=== PATIENT | male | born 1960 | race Two or more races ===

== ENCOUNTER 2023-12-04 23:07 | Inpatient (IN) | payer OTHER ==
[~2023-12-04] VITALS: Ht 170.2 cm; Wt 68.9 kg
[2023-12-04] MEDS ORDERED: CEFTRIAXONE /D5W 50ML IVPB **ER PYXIS IV ONE (23:56)
[2023-12-04] MEDS ORDERED: HYDROMORPHONE 1 MG/1 ML DISP.SYRIN ONE (23:56)
[2023-12-04] MEDS ORDERED: ONDANSETRON 4 MG/2 ML VIAL ONE (23:56)
[2023-12-05] MEDS: HYDROMORPHONE 1 MG/1 ML DISP.SYRIN IV ONE
[2023-12-05] MEDS: ONDANSETRON 4 MG/2 ML VIAL IV ONE (00:01)
[2023-12-05] MEDS: CEFTRIAXONE 1 G in IV DEXTROSE 5% 50 ML IV ONE (00:11)
[2023-12-05 00:12] LABS: BASOPHILS # (AUTO) 0.2 K/UL (0.0-0.2); BASOPHILS % (AUTO) 2.5 % (0.0-2.0); EOSINOPHILS # (AUTO) 0.2 K/uL (0.0-0.7); EOSINOPHILS % (AUTO) 2.6 % (0.0-7.0); HEMATOCRIT 32.8 % (36.7-47.1); HEMOGLOBIN 11.5 g/dL (12.5-16.3); LYMPHOCYTES # (AUTO) 0.9 K/uL (0.8-4.8); MEAN CORPUSCULAR HEMOGLOBIN 35.4 uug (23.8-33.4); MEAN CORPUSCULAR HGB CONC 35 g/dL (32.5-36.3); MEAN CORPUSCULAR VOLUME 100.5 fL (73.0-96.2); MONOCYTES # (AUTO) 0.4 K/uL (0.1-1.30); NEUTROPHILS % (AUTO) 75.9 % (38.5-71.5); PLATELET COUNT (AUTO) 133 K/uL (152-348); RED BLOOD CELL COUNT(AUTO) 3.26 MIL/uL (4.06-5.63); RED CELL DISTRIBUTION WIDTH 13.7 % (12.1-16.2); WHITE BLOOD COUNT (AUTO) 6.6 K/uL (3.6-10.2)
[2023-12-05 00:22] LABS: CALCIUM 7.9 mg/dL (8.5-10.1); CREATININE 0.9 mg/dL (0.6-1.3); POTASSIUM 3.9 mmol/L (3.5-5.1)
[2023-12-05 00:24] LABS: DIFFERENTIAL COMMENT 1
[2023-12-05 00:28] LABS: ALBUMIN 2.5 g/dL (3.4-5.0); BILIRUBIN,DIRECT 0.8 mg/dL (0.0-0.2); TOTAL PROTEIN, SERUM 6.2 g/dL (6.4-8.2)
[2023-12-05] MEDS ORDERED: CALC-494 PO (00:30)
[2023-12-05] MEDS ORDERED: FOLI1TAB94 PO (00:30)
[2023-12-05] MEDS ORDERED: RIFA500P3 PO (00:30)
[2023-12-05] MEDS ORDERED: FAMO-132 PO (00:30)
[2023-12-05] MEDS ORDERED: CYAN-51 PO (00:30)
[2023-12-05] MEDS ORDERED: PROP20SO PO (00:30)
[2023-12-05] MEDS ORDERED: SODI100010 PO (00:30)
[2023-12-05] MEDS ORDERED: SPIR100T5 PO (00:30)
[2023-12-05] MEDS ORDERED: HYDR2TAB4 PO (00:30)
[2023-12-05] MEDS ORDERED: LACT10SO58 PO (00:30)
[2023-12-05] MEDS ORDERED: ACET325T53 PO (00:30)
[2023-12-05] MEDS ORDERED: DOCU-141 PO (00:30)
[2023-12-05] MEDS ORDERED: CYAN100020 SL (00:30)
[2023-12-05] MEDS ORDERED: THIA100T88 PO (00:30)
[2023-12-05] MEDS ORDERED: MORPHINE SULFATE 2 MG/1 ML DISP.SYRIN IV PRN (03:30)
[2023-12-05] MEDS ORDERED: ONDANSETRON 4 MG/2 ML VIAL IV PRN (03:30)
[2023-12-05] MEDS ORDERED: REMEDY ESSENTIAL ZINC PASTE 113 GM TP PRN (03:30)
[2023-12-05 04:10] VITALS: BP 94/59; TEMP 97.9; O2SAT 99
[2023-12-05 06:53] LABS: *BILIRUBIN,URIN NEGATIVE (NEGATIVE); *BLOOD, URINE NEGATIVE (NEGATIVE); *CLARITY,URINE CLEAR (CLEAR); *COLOR,URINE YELLOW (YELLOW); *KETONES,URINE NEGATIVE (NEGATIVE); *PROTEIN,URINE NEGATIVE (NEGATIVE); *UROBILINOGEN,URINE 0.2 E.U./dl (NORMAL); LEUKOCYTE ESTERASE ,URINE NEGATIVE (NEGATIVE); NITRITE, URINE NEGATIVE (NEGATIVE); PH,URINE 6.5 (5.0-8.0); UGLUCOSE NEGATIVE (NEGATIVE)
[2023-12-05 06:57] LABS: BASOPHILS % (AUTO) 0.8 % (0.0-2.0); EOSINOPHILS # (AUTO) 0.2 K/uL (0.0-0.7); EOSINOPHILS % (AUTO) 4.5 % (0.0-7.0); HEMATOCRIT 33.3 % (36.7-47.1); HEMOGLOBIN 11.8 g/dL (12.5-16.3); LYMPHOCYTES % (AUTO) 20.6 % (20.5-51.5); MEAN CORPUSCULAR HEMOGLOBIN 35.2 uug (23.8-33.4); MEAN CORPUSCULAR HGB CONC 36 g/dL (32.5-36.3); MEAN CORPUSCULAR VOLUME 99.1 fL (73.0-96.2); MONOCYTES # (AUTO) 0.4 K/uL (0.1-1.30); MONOCYTES % (AUTO) 8.2 % (0.0-11.0); NEUTROPHILS # (AUTO) 3.3 K/uL (1.8-8.9); NEUTROPHILS % (AUTO) 65.9 % (38.5-71.5); PLATELET COUNT (AUTO) 148 K/uL (152-348); RED BLOOD CELL COUNT(AUTO) 3.36 MIL/uL (4.06-5.63); RED CELL DISTRIBUTION WIDTH 13.4 % (12.1-16.2)
[2023-12-05 07:01] LABS: DIFFERENTIAL COMMENT 1
[2023-12-05 07:03] LABS: ALBUMIN 2.7 g/dL (3.4-5.0); BILIRUBIN,DIRECT 0.8 mg/dL (0.0-0.2); BILIRUBIN,TOTAL 1.9 mg/dL (0.2-1.0); CALCIUM 8.4 mg/dL (8.5-10.1); CREATININE 0.8 mg/dL (0.6-1.3); MAGNESIUM 1.6 mg/dL (1.8-2.4); PHOSPHOROUS 4.2 mg/dL (2.5-4.9); POTASSIUM 4.5 mmol/L (3.5-5.1); TOTAL PROTEIN, SERUM 6.4 g/dL (6.4-8.2)
[2023-12-05 07:59] VITALS: BP 109/68; TEMP 98.4; O2SAT 97
[2023-12-05] MEDS ORDERED: RIFA550T PO (09:13)
[2023-12-05 11:36] VITALS: BP 95/58; TEMP 97.7; O2SAT 98
[2023-12-05] MEDS: MAGNESIUM SULFATE/D5W 100 ML IV SCH (11:59)
[2023-12-05 16:00] VITALS: BP 106/58; TEMP 99.1; O2SAT 98
[2023-12-05 19:58] VITALS: BP 110/67; TEMP 98.6; O2SAT 96
[2023-12-05] MEDS: CEFTRIAXONE 1 G in IV DEXTROSE 5% 50 ML IV SCH (23:47)
[2023-12-06 06:17] VITALS: BP 108/56; TEMP 98.8; O2SAT 95
[2023-12-06 07:47] LABS: BASOPHILS % (AUTO) 0.3 % (0.0-2.0); EOSINOPHILS # (AUTO) 0.1 K/uL (0.0-0.7); EOSINOPHILS % (AUTO) 1.1 % (0.0-7.0); HEMATOCRIT 31.8 % (36.7-47.1); HEMOGLOBIN 11.3 g/dL (12.5-16.3); LYMPHOCYTES # (AUTO) 0.7 K/uL (0.8-4.8); LYMPHOCYTES % (AUTO) 11.8 % (20.5-51.5); MEAN CORPUSCULAR HEMOGLOBIN 35.4 uug (23.8-33.4); MEAN CORPUSCULAR HGB CONC 36 g/dL (32.5-36.3); MEAN CORPUSCULAR VOLUME 99.9 fL (73.0-96.2); MONOCYTES # (AUTO) 0.5 K/uL (0.1-1.30); MONOCYTES % (AUTO) 8.2 % (0.0-11.0); NEUTROPHILS # (AUTO) 4.7 K/uL (1.8-8.9); NEUTROPHILS % (AUTO) 78.6 % (38.5-71.5); PLATELET COUNT (AUTO) 133 K/uL (152-348); RED BLOOD CELL COUNT(AUTO) 3.18 MIL/uL (4.06-5.63); RED CELL DISTRIBUTION WIDTH 13.2 % (12.1-16.2)
[2023-12-06 07:51] LABS: ALBUMIN 2.3 g/dL (3.4-5.0); BILIRUBIN,TOTAL 3.1 mg/dL (0.2-1.0); CALCIUM 8.2 mg/dL (8.5-10.1); CREATININE 0.8 mg/dL (0.6-1.3); MAGNESIUM 1.8 mg/dL (1.8-2.4); PHOSPHOROUS 3.5 mg/dL (2.5-4.9); POTASSIUM 4.9 mmol/L (3.5-5.1); TOTAL PROTEIN, SERUM 5.9 g/dL (6.4-8.2)
[2023-12-06 07:53] LABS: DIFFERENTIAL COMMENT 1
[2023-12-06 09:11] LABS: THYROID STIMULATING HORMONE 1.696 mIU/mL (0.358-3.740)
[2023-12-06] MEDS ORDERED: ACETAMINOPHEN 325 MG TABLET-SA PATIENTS-PAIN ONLY PO PRN (09:30)
[2023-12-06] MEDS ORDERED: ACETAMINOPHEN 325 MG TABLET PO PRN (09:30)
[2023-12-06] MEDS: FAMOTIDINE 20 MG TABLET PO SCH (10:10)
[2023-12-06] MEDS: SODIUM CHLORIDE 1,000 MG TABLET PO SCH (10:10)
[2023-12-06] MEDS: RIFAXIMIN 550 MG TABLET PO SCH (10:10)
[2023-12-06 11:33] VITALS: BP 117/75; TEMP 98.6; O2SAT 100
[2023-12-06] MEDS: LACTULOSE 20 G/30 ML LIQUID UDC PO SCH (12:24)
[2023-12-06] MEDS ORDERED: Medication Not On Formulary EA (Lactulose 10 GM) PO SCH (13:00)
[2023-12-06] MEDS ORDERED: PROP10TA68 PO (15:33)
[2023-12-06] MEDS ORDERED: SPIR50TA PO (15:33)
[2023-12-06] MEDS ORDERED: SUCR1TAB31 PO (15:33)
[2023-12-06] MEDS ORDERED: MULT-1045 PO (15:33)
[2023-12-06 15:48] VITALS: BP 100/67; TEMP 98.7; O2SAT 98
[2023-12-06] MEDS ORDERED: PROPRANOLOL HCL 10 MG TABLET PO SCH (21:00)
[2023-12-07] MEDS ORDERED: SPIRONOLACTONE 50 MG TABLET PO SCH (09:00)
[2023-12-07] MEDS ORDERED: SPIRONOLACTONE 100 MG TABLET PO SCH (09:00)
== END 2023-12-06 17:40 | DRG 241 ==
LOC: ER 23:12 → MEDSURG3 12-05 02:30
PROVIDERS: ADMIT Internal Medicine; ATTEND Internal Medicine
DX: K29.00 Acute gastritis without bleeding (principal); D68.4 Acquired coagulation factor deficiency; D69.6 Thrombocytopenia, unspecified; E44.0 Moderate protein-calorie malnutrition; E22.2 Syndrome of inappropriate secretion of antidiuretic hormone; E67.8 Other specified hyperalimentation; K70.31 Alcoholic cirrhosis of liver with ascites; K76.6 Portal hypertension; D53.9 Nutritional anemia, unspecified; E80.6 Other disorders of bilirubin metabolism; K29.50 Unspecified chronic gastritis without bleeding; Z87.891 Personal history of nicotine dependence; R73.9 Hyperglycemia, unspecified; F10.21 Alcohol dependence, in remission; Z68.23 Body mass index [BMI] 23.0-23.9, adult
CPT/HCPCS: 36415; 71045; 76705; 83690; 83735; 84100; 84443; 85025; 85730; 93005; A4663; A6213; G0378; J0696; J1170; J2405; J3475

== ENCOUNTER 2024-08-07 22:04 | Inpatient (IN) | payer MEDICARE, OTHER ==
[~2024-08-07] VITALS: Ht 167.6 cm; Wt 58.1 kg
[~2024-08-07 22:04] MED LIST: ACET325T53 PO; FAMO-132 PO; HYDR2TAB4 PO; LACT10SO58 PO; MULT-1045 PO; PROP10TA68 PO; RIFA550T PO; SODI100010 PO; SPIR50TA PO; SUCR1TAB31 PO
[2024-08-07] MEDS ORDERED: MIDO10TA PO (22:38)
[2024-08-07] MEDS ORDERED: TAMS-3 PO (22:38)
[2024-08-07] MEDS ORDERED: THIA100T74 PO (22:38)
[2024-08-07] MEDS ORDERED: ONDA4TAB5 PO (22:38)
[2024-08-07] MEDS ORDERED: FOLI1TAB27 PO (22:38)
[2024-08-07] MEDS ORDERED: CYAN100T44 PO (22:38)
[2024-08-07] MEDS ORDERED: POLY250017 PO (22:38)
[2024-08-07] MEDS ORDERED: MELA3CAP2 PO (22:38)
[2024-08-07 22:41] LABS: BASOPHILS % (AUTO) 0.7 % (0.0-2.0); EOSINOPHILS # (AUTO) 0.2 K/uL (0.0-0.7); EOSINOPHILS % (AUTO) 4.3 % (0.0-7.0); HEMATOCRIT 23.9 % (36.7-47.1); HEMOGLOBIN 8.5 g/dL (12.5-16.3); LYMPHOCYTES # (AUTO) 0.8 K/uL (0.8-4.8); LYMPHOCYTES % (AUTO) 17.6 % (20.5-51.5); MEAN CORPUSCULAR HEMOGLOBIN 33.7 uug (23.8-33.4); MEAN CORPUSCULAR HGB CONC 36 g/dL (32.5-36.3); MEAN CORPUSCULAR VOLUME 94.7 fL (73.0-96.2); MONOCYTES # (AUTO) 0.4 K/uL (0.1-1.30); MONOCYTES % (AUTO) 8.6 % (0.0-11.0); NEUTROPHILS # (AUTO) 3.2 K/uL (1.8-8.9); NEUTROPHILS % (AUTO) 68.8 % (38.5-71.5); PLATELET COUNT (AUTO) 124 K/uL (152-348); RED BLOOD CELL COUNT(AUTO) 2.53 MIL/uL (4.06-5.63); WHITE BLOOD COUNT (AUTO) 4.6 K/uL (3.6-10.2)
[2024-08-07 22:46] LABS: DIFFERENTIAL COMMENT 1
[2024-08-07 22:50] LABS: CALCIUM 8.6 mg/dL (8.5-10.1); CREATININE 1.3 mg/dL (0.6-1.3); POTASSIUM 4.5 mmol/L (3.5-5.1)
[2024-08-07 22:55] LABS: ALBUMIN 3.1 g/dL (3.4-5.0); BILIRUBIN,DIRECT 0.7 mg/dL (0.0-0.2); BILIRUBIN,TOTAL 1.6 mg/dL (0.2-1.0); TOTAL PROTEIN, SERUM 6.2 g/dL (6.4-8.2)
[2024-08-07] MEDS ORDERED: ONDANSETRON 4 MG/2 ML VIAL IV PRN (23:30)
[2024-08-07] MEDS ORDERED: ACETAMINOPHEN 325 MG TABLET PO PRN (23:30)
[2024-08-07] MEDS: IV NORMAL SALINE 1000 ML BAG IV ONE (23:30)
[2024-08-07] MEDS ORDERED: REMEDY ESSENTIAL ZINC PASTE 113 GM TP PRN (23:30)
[2024-08-07] MEDS ORDERED: ACETAMINOPHEN 325 MG TABLET-SA PATIENTS-PAIN ONLY PO PRN (23:30)
[2024-08-07] MEDS ORDERED: MAGNESIUM HYDROXIDE 30 ML LIQUID UDC PO PRN (23:30)
[2024-08-07] MEDS ORDERED: LACTULOSE 20 G/30 ML LIQUID UDC ONE (23:48)
[2024-08-07] MEDS: LACTULOSE 20 G/30 ML LIQUID UDC PO ONE (23:50)
[2024-08-08 01:00] VITALS: BP 97/64; TEMP 98.3; O2SAT 100
[2024-08-08] MEDS ORDERED: MIRALAX 17 GM POWD.PACK PO PRN (01:45)
[2024-08-08] MEDS ORDERED: MIDODRINE HCL 5 MG TABLET PO SCH (02:15)
[2024-08-08] MEDS: IV NS 1000 ML 1,000 ML IV PRN (02:54)
[2024-08-08] MEDS ORDERED: MIDODRINE HCL 5 MG TABLET PO PRN (05:22)
[2024-08-08] MEDS: PANTOPRAZOLE SODIUM 40 MG TABLET.DR PO SCH (06:27)
[2024-08-08 06:44] LABS: CALCIUM 8.8 mg/dL (8.5-10.1); CREATININE 1.2 mg/dL (0.6-1.3); MAGNESIUM 1.7 mg/dL (1.8-2.4); PHOSPHOROUS 3.4 mg/dL (2.5-4.9); POTASSIUM 4.6 mmol/L (3.5-5.1)
[2024-08-08 06:57] LABS: EOSINOPHILS # (AUTO) 0.2 K/uL (0.0-0.7); EOSINOPHILS % (AUTO) 4.7 % (0.0-7.0); HEMATOCRIT 23.6 % (36.7-47.1); HEMOGLOBIN 8.4 g/dL (12.5-16.3); LYMPHOCYTES # (AUTO) 0.7 K/uL (0.8-4.8); LYMPHOCYTES % (AUTO) 21.1 % (20.5-51.5); MEAN CORPUSCULAR HEMOGLOBIN 34.5 uug (23.8-33.4); MEAN CORPUSCULAR HGB CONC 36 g/dL (32.5-36.3); MEAN CORPUSCULAR VOLUME 96.9 fL (73.0-96.2); MONOCYTES # (AUTO) 0.3 K/uL (0.1-1.30); NEUTROPHILS # (AUTO) 2.2 K/uL (1.8-8.9); NEUTROPHILS % (AUTO) 64.2 % (38.5-71.5); PLATELET COUNT (AUTO) 109 K/uL (152-348); RED CELL DISTRIBUTION WIDTH 16.2 % (12.1-16.2); WHITE BLOOD COUNT (AUTO) 3.5 K/uL (3.6-10.2)
[2024-08-08 07:00] LABS: DIFFERENTIAL COMMENT 1; RED BLOOD CELL COUNT(AUTO) 2.44 MIL/uL (4.06-5.63)
[2024-08-08 07:09] VITALS: BP 93/47; TEMP 97.9; O2SAT 96
[2024-08-08 07:24] LABS: *BILIRUBIN,URIN NEGATIVE (NEGATIVE); *BLOOD, URINE NEGATIVE (NEGATIVE); *CLARITY,URINE CLEAR (CLEAR); *COLOR,URINE YELLOW (YELLOW); *KETONES,URINE NEGATIVE (NEGATIVE); *PROTEIN,URINE NEGATIVE (NEGATIVE); *UROBILINOGEN,URINE 0.2 E.U./dl (NORMAL); LEUKOCYTE ESTERASE ,URINE NEGATIVE (NEGATIVE); NITRITE, URINE NEGATIVE (NEGATIVE); UGLUCOSE NEGATIVE (NEGATIVE)
[2024-08-08 08:03] LABS: *SODIUM RNDM,URINE 6 mmol/L (40-220)
[2024-08-08] MEDS: SODIUM CHLORIDE 1,000 MG TABLET PO SCH (08:12)
[2024-08-08] MEDS: THIAMINE HCL 100 MG TABLET PO SCH (08:12)
[2024-08-08] MEDS: LACTULOSE 20 G/30 ML LIQUID UDC PO SCH ×2 (08:12→20:16)
[2024-08-08] MEDS: FOLIC ACID 1 MG TABLET PO SCH (08:12)
[2024-08-08] MEDS: CYANOCOBALAMIN 1,000 MCG TABLET PO SCH (08:51)
[2024-08-08] MEDS ORDERED: CYANOCOBALAMIN 100 MCG TABLET PO SCH (09:00)
[2024-08-08] MEDS: ENOXAPARIN SODIUM 40 MG/0.4 ML DISP.SYRIN SQ SCH (10:58)
[2024-08-08] MEDS ORDERED: CYANOCOBALAMIN 1,000 MCG TABLET PO SCH (11:00)
[2024-08-08] MEDS: LACTULOSE 20 G/30 ML LIQUID UDC PO ONE (11:06)
[2024-08-08] MEDS: MAGNESIUM OXIDE 400 MG TABLET PO ONE (11:06)
[2024-08-08] MEDS: RIFAXIMIN 550 MG TABLET PO SCH (11:07)
[2024-08-08 11:55] VITALS: BP 103/70; TEMP 97.8; O2SAT 99
[2024-08-08] MEDS: MIDODRINE HCL 5 MG TABLET PO SCH (13:08)
[2024-08-08 15:40] VITALS: BP 119/65; TEMP 97.7; O2SAT 100
[2024-08-08 16:14] LABS: THYROID STIMULATING HORMONE 2.555 mIU/mL (0.358-3.740)
[2024-08-08 19:47] VITALS: BP 113/71; TEMP 98.9; O2SAT 100
[2024-08-08] MEDS: TAMSULOSIN HCL 0.4 MG CAP.SR.24H PO SCH (20:16)
[2024-08-08] MEDS: MELATONIN 3 MG TABLET PO SCH (20:16)
[2024-08-08] MEDS ORDERED: LACTULOSE 20 G/30 ML LIQUID UDC PO SCH (21:00)
[2024-08-09 04:44] VITALS: BP 99/64; TEMP 98.1; O2SAT 99
[2024-08-09 06:17] VITALS: BP 99/64; TEMP 98.1; O2SAT 99
[2024-08-09 06:46] LABS: BASOPHILS % (AUTO) 0.8 % (0.0-2.0); EOSINOPHILS # (AUTO) 0.1 K/uL (0.0-0.7); EOSINOPHILS % (AUTO) 5.2 % (0.0-7.0); HEMATOCRIT 22.8 % (36.7-47.1); HEMOGLOBIN 8.1 g/dL (12.5-16.3); LYMPHOCYTES # (AUTO) 0.5 K/uL (0.8-4.8); LYMPHOCYTES % (AUTO) 18.5 % (20.5-51.5); MEAN CORPUSCULAR HEMOGLOBIN 34.4 uug (23.8-33.4); MEAN CORPUSCULAR HGB CONC 36 g/dL (32.5-36.3); MEAN CORPUSCULAR VOLUME 96.2 fL (73.0-96.2); MONOCYTES # (AUTO) 0.3 K/uL (0.1-1.30); MONOCYTES % (AUTO) 9.8 % (0.0-11.0); NEUTROPHILS # (AUTO) 1.8 K/uL (1.8-8.9); NEUTROPHILS % (AUTO) 65.7 % (38.5-71.5); PLATELET COUNT (AUTO) 96 K/uL (152-348); RED CELL DISTRIBUTION WIDTH 16.4 % (12.1-16.2); WHITE BLOOD COUNT (AUTO) 2.7 K/uL (3.6-10.2)
[2024-08-09 07:01] LABS: BILIRUBIN,DIRECT 0.8 mg/dL (0.0-0.2); CALCIUM 8.4 mg/dL (8.5-10.1); CREATININE 1.1 mg/dL (0.6-1.3); MAGNESIUM 1.8 mg/dL (1.8-2.4); PHOSPHOROUS 3.2 mg/dL (2.5-4.9); POTASSIUM 4.9 mmol/L (3.5-5.1); URIC ACID 5.1 mg/dL (3.5-7.2)
[2024-08-09 07:14] LABS: DIFFERENTIAL COMMENT 1; RED BLOOD CELL COUNT(AUTO) 2.37 MIL/uL (4.06-5.63)
[2024-08-09 07:59] LABS: THYROID STIMULATING HORMONE 3.962 mIU/mL (0.358-3.740)
[2024-08-09 11:09] VITALS: BP 106/70; TEMP 97.8; O2SAT 100
[2024-08-09 16:03] VITALS: BP 108/70; TEMP 98; O2SAT 99
[2024-08-09] MEDS: ENSURE ENLIVE (VAN) 240 ML LIQUID PO SCH (17:00)
[2024-08-09 19:00] VITALS: BP 110/65; TEMP 98.5; O2SAT 100
[2024-08-10 06:00] VITALS: BP 102/68; TEMP 98.1; O2SAT 95
[2024-08-10 07:10] LABS: CALCIUM 8.2 mg/dL (8.5-10.1); EOSINOPHILS # (AUTO) 0.2 K/uL (0.0-0.7); EOSINOPHILS % (AUTO) 5.8 % (0.0-7.0); HEMOGLOBIN 7.7 g/dL (12.5-16.3); LYMPHOCYTES # (AUTO) 0.5 K/uL (0.8-4.8); LYMPHOCYTES % (AUTO) 18.2 % (20.5-51.5); MEAN CORPUSCULAR HEMOGLOBIN 33.4 uug (23.8-33.4); MEAN CORPUSCULAR HGB CONC 35 g/dL (32.5-36.3); MEAN CORPUSCULAR VOLUME 95.5 fL (73.0-96.2); MONOCYTES # (AUTO) 0.3 K/uL (0.1-1.30); MONOCYTES % (AUTO) 10.4 % (0.0-11.0); NEUTROPHILS # (AUTO) 1.8 K/uL (1.8-8.9); NEUTROPHILS % (AUTO) 64.6 % (38.5-71.5); PLATELET COUNT (AUTO) 94 K/uL (152-348); POTASSIUM 4.8 mmol/L (3.5-5.1); RED CELL DISTRIBUTION WIDTH 16.2 % (12.1-16.2); WHITE BLOOD COUNT (AUTO) 2.8 K/uL (3.6-10.2)
[2024-08-10 07:12] LABS: DIFFERENTIAL COMMENT 1
[2024-08-10] MEDS ORDERED: ENOX40DI SQ (08:24)
[2024-08-10] MEDS ORDERED: PANT40TA49 PO (08:24)
[2024-08-10 11:10] VITALS: BP 103/61; TEMP 98.4; O2SAT 99
[2024-08-10 13:12] VITALS: BP 100/66
[2024-08-13] MEDS ORDERED: CYANOCOBALAMIN 1,000 MCG TABLET PO SCH (09:00)
== END 2024-08-10 13:45 | DRG 641 ==
LOC: ER 22:16 → MEDSURG3 08-08 00:29
PROVIDERS: ADMIT Nurse Practitioner Family; ATTEND Nurse Practitioner Family
DX: E87.1 Hypo-osmolality and hyponatremia (principal); D68.59 Other primary thrombophilia; E72.20 Disorder of urea cycle metabolism, unspecified; K70.30 Alcoholic cirrhosis of liver without ascites; N40.0 Benign prostatic hyperplasia without lower urinary tract symptoms; R79.89 Other specified abnormal findings of blood chemistry; E83.42 Hypomagnesemia; E88.09 Other disorders of plasma-protein metabolism, not elsewhere classified; Z79.899 Other long term (current) drug therapy; Z88.5 Allergy status to narcotic agent; E86.0 Dehydration; R63.1 Polydipsia; K80.20 Calculus of gallbladder without cholecystitis without obstruction; K21.9 Gastro-esophageal reflux disease without esophagitis; K59.00 Constipation, unspecified; D69.6 Thrombocytopenia, unspecified
CPT/HCPCS: 36415; 71045; 82533; 83605; 83735; 84100; 84300; 84443; 84550; 85025; 87040; G0378; J1650; J7040